=== PATIENT | female | born 1990 | race Asian ===

== ENCOUNTER → 2017-02-15 | Outpatient (CLI) | payer OTHER | END | disposition home or self-care (01) | LOC: MI 12:07 | PROC: BQ38ZZZ Magnetic Resonance Imaging (MRI) of Left Knee (ICD-10-PCS; principal; 2017-02-15) | DX: M25.562 Pain in left knee (principal) ==

== ENCOUNTER → 2020-02-19 | Outpatient (CLI) | payer OTHER | END | disposition home or self-care (01) | LOC: LB 07:56 | DX: Z00.00 Encounter for general adult medical examination without abnormal findings (principal) | CPT/HCPCS: 86480; 86787 ==

== ENCOUNTER 2020-06-07 06:54 | Day surgery (SDC) | payer OTHER, SELFPAY ==
[~2020-06-07] VITALS: Ht 149.9 cm; Wt 44.5 kg
[2020-06-07 06:59] VITALS: BP 101/65
[2020-06-07 10:48] VITALS: BP 101/62
== END 2020-06-07 11:00 | disposition home or self-care (01) ==
LOC: DS 06:54
PROVIDERS: ATTEND Internal Medicine Gastroenterology
DX: R10.13 Epigastric pain (principal); K63.89 Other specified diseases of intestine; Z11.59 Encounter for screening for other viral diseases
CPT/HCPCS: 43235; J1200; J1610; J2250; J2310; J3010; J3490; U0003-CS

== ENCOUNTER 2020-10-30 18:48 | Inpatient (IN) | payer OTHER ==
[~2020-10-30] VITALS: Ht 149.9 cm; Wt 44.5 kg
[2020-10-30 18:55] VITALS: Ht 149.9 cm; Wt 44.5 kg
[2020-10-30 20:19] LABS: BASOPHIL % 0.5 % (0.2-1.3); PLATELET COUNT 302 x10^3mcL (179-408); RED CELL DISTRIBUTION WIDTH 12.9 % (12.3-17.7)
[2020-10-30 20:42] LABS: ALBUMIN 4.3 g/dL (3.4-5.0); ALKALINE PHOSPHATASE 62 U/L (46-116); ALT/SGPT 27 U/L (14-59); AST/SGOT 12 U/L (15-37); BILIRUBIN TOTAL 0.4 mg/dL (0.20-1.00); CALCIUM 9.2 mg/dL (8.5-10.1); CARBON DIOXIDE 26.3 mmol/L (21-32); CHLORIDE SERUM 103 mmol/L (98-107); CREATININE SERUM 0.6 mg/dL (0.6-1.0); GFR1 > 60 mL/min; GLUCOSE SERUM 114 mg/dL (74-106); LIPASE 83 IU/L (73-393); POTASSIUM SERUM 3.5 mmol/L (3.5-5.1); SODIUM SERUM 135 mmol/L (136-145); TOTAL PROTEIN, SERUM 7.7 g/dL (6.4-8.2)
[2020-10-31 02:15] VITALS: BP 104/63
[2020-10-31 06:01] VITALS: BP 100/61
[2020-10-31 08:24] VITALS: BP 100/54
[2020-10-31] MEDS ORDERED: APAP/HYDROCODON1 T13 PO (16:02)
[2020-10-31] MEDS ORDERED: TYLENOL ARTHRI650 MG PO (16:26)
[2020-10-31 17:52] VITALS: BP 102/61
[2020-10-31 18:22] LABS: BASOPHIL % 0.4 % (0.2-1.3); PLATELET COUNT 315 x10^3mcL (179-408); RED CELL DISTRIBUTION WIDTH 12.7 % (12.3-17.7)
[2020-10-31 18:41] LABS: rbc morphology (normal/abnorm) NORMAL (NORMAL)
[2020-10-31 19:01] LABS: CALCIUM 9.2 mg/dL (8.5-10.1); CARBON DIOXIDE 28.6 mmol/L (21-32); CHLORIDE SERUM 104 mmol/L (98-107); CREATININE SERUM 0.8 mg/dL (0.6-1.0); GFR1 > 60 mL/min; GLUCOSE SERUM 95 mg/dL (74-106); POTASSIUM SERUM 3.4 mmol/L (3.5-5.1); SODIUM SERUM 141 mmol/L (136-145)
[2020-10-31 20:15] VITALS: BP 104/67
== END 2020-10-31 21:50 | disposition home or self-care (01) | DRG 342 ==
LOC: ED 18:48 → MU 21:51
PROVIDERS: Emergency Medicine; Surgery; ADMIT Family Medicine; ATTEND Family Medicine
PROC: 0DTJ4ZZ Resection of Appendix, Percutaneous Endoscopic Approach (ICD-10-PCS; principal; 2020-10-30 22:30)
DX: K35.80 Unspecified acute appendicitis (principal); E87.1 Hypo-osmolality and hyponatremia; K21.9 Gastro-esophageal reflux disease without esophagitis; Z20.822 Contact with and (suspected) exposure to COVID-19
CPT/HCPCS: G0378; J0131; J0690; J0694; J1170; J1885; J1956; J2405; J3010; J3490; J7030; J7050; Q9967